=== PATIENT | female | born 1970 | race Caucasian/White ===

== ENCOUNTER 2019-06-03 20:53 | Emergency (ER) | payer MEDICAID, OTHER ==
[~2019-06-03] VITALS: Ht 147.3 cm; Wt 63.5 kg
--- NOTE | 2019-06-03 21:16 | NUR ---
CHANCE MACKENZIE AT BEDSIDE FOR EVAL
[2019-06-03] MEDS ORDERED: KETOROLAC TROMETHAMINE INJ 60 MG/2 ML VIAL IM ONE (21:30)
[2019-06-03] MEDS ORDERED: HYDROCODONE/APAP 5/325MG 1 EACH TABLET PO ONE (21:30)
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
[2019-06-03] MEDS ORDERED: HYDROCODONE/APAP 5/325MG 1 EACH TABLET ONE (21:33)
[2019-06-03] MEDS ORDERED: KETOROLAC TROMETHAMINE INJ 30 MG/ML VIAL ONE (21:33)
[2019-06-03 21:54] LABS: APPEARANCE,URINE Slightly Cloudy (CLEAR); BILIRUBIN,URINE Negative (NEGATIVE); BLOOD, URINE Negative Ery/uL (NEGATIVE); COLOR,URINE Yellow (YELLOW); KETONES,URINE Negative (NEGATIVE); LEUKOCYTE ESTERASE ,URINE Negative (NEGATIVE); NITRITE, URINE Positive (NEGATIVE); PH,URINE 5.5 (5.0-8.0); PROTEIN,URINE Negative (NEGATIVE); UGLUCOSE 500 MG/DL mg/dL (NEGATIVE); UROBILINOGEN,URINE 0.2 EU/dL (0.2)
[2019-06-03 22:11] LABS: BACTERIA,URINE 3+ /HPF (None Seen); RBC,URINE 0-2 /HPF (0-2); SQUAMOUS EPITHELIAL CELL,UR Few /HPF (None Seen); WBC,URINE 0-2 /HPF (0-3)
[2019-06-03 22:48] VITALS: BP 121/76
--- NOTE | 2019-06-03 22:48 | NUR ---
Patient discharged to home in stable condition. Written and verbal after care instructions given. Patient verbalizes understanding of instruction. Pt ambulatory with a steady gait
== END 2019-06-03 22:49 | disposition home or self-care (01) ==
LOC: ER 21:01 → EDSEX 21:01 → ER 22:49
DX: S30.0XXA Contusion of lower back and pelvis, initial encounter (principal); N39.0 Urinary tract infection, site not specified; R73.9 Hyperglycemia, unspecified; R81 Glycosuria; Y04.0XXA Assault by unarmed brawl or fight, initial encounter; Y93.89 Activity, other specified; Y92.89 Other specified places as the place of occurrence of the external cause; Y99.8 Other external cause status
CPT/HCPCS: 81001; 82962; 87086; 96372; 99283; J1885; 81000-TC

== ENCOUNTER 2019-06-09 11:06 | Emergency (ER) | payer OTHER ==
[~2019-06-09] VITALS: Ht 162.6 cm; Wt 60.8 kg
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
--- NOTE | 2019-06-09 12:03 | NUR ---
AT BEDSIDE FOR EVAL.
--- NOTE | 2019-06-09 12:25 | NUR ---
PT SIGNED WAIVER
--- NOTE | 2019-06-09 12:40 | NUR ---
XRAY AT BEDSIDE
--- NOTE | 2019-06-09 13:41 | NUR ---
Patient discharged to home in stable condition. Written and verbal after care instructions given. Patient verbalizes understanding of instruction.
[2019-06-09 13:43] VITALS: BP 126/82
== END 2019-06-09 13:43 | disposition home or self-care (01) ==
LOC: ER 11:07
DX: S39.012A Strain of muscle, fascia and tendon of lower back, initial encounter (principal); M79.672 Pain in left foot; W22.8XXA Striking against or struck by other objects, initial encounter; Y93.89 Activity, other specified; Y92.89 Other specified places as the place of occurrence of the external cause; Y99.8 Other external cause status
CPT/HCPCS: 72110-TC; 73630-TC